=== PATIENT | female | born 1940 | race Caucasian/White ===

== ENCOUNTER 2016-07-09 12:38 | Inpatient (IN) | payer MEDICARE, MEDICAID ==
[~2016-07-09] VITALS: Ht 149.9 cm; Wt 48.3 kg
[2016-07-09 16:30] VITALS: BP 131/63
[2016-07-09] MEDS ORDERED: HEPARIN SODIUM,PORCINE 5,000 UNITS/ML VIAL IVP PRN ×2 (18:15)
[2016-07-09] MEDS ORDERED: HEPARIN SODIUM,PORCINE 5,000 UNITS/ML VIAL IVP ONE (18:15)
[2016-07-09 18:19] LABS: EOSINOPHILS % (AUTO) 2.7 % (1.0-6.0); HEMATOCRIT 28.8 % (36-46); HEMOGLOBIN 9.4 g/dL (12.0-16.0); LYMPHOCYTES # (AUTO) 0.7 K/uL (1.0-4.8); LYMPHOCYTES % (AUTO) 9.8 % (22.0-44.0); MEAN CORPUSCULAR HEMOGLOBIN 24.6 pg (26.0-34.0); MEAN CORPUSCULAR HGB CONC 32.5 G/dL (31.0-37.0); MEAN CORPUSCULAR VOLUME 76 fL (80-100); MONOCYTES # (AUTO) 0.4 K/uL (0.1-1.0); MONOCYTES % (AUTO) 5.4 % (2.0-9.0); NEUTROPHILS % (AUTO) 82.1 % (40.0-70.0); PLATELET COUNT (AUTO) 189 K/uL (150-450); RED CELL DISTRIBUTION WIDTH 23.3 % (11.5-14.5); WHITE BLOOD COUNT (AUTO) 7.3 K/uL (4.5-11.0)
[2016-07-09] MEDS ORDERED: DEXTROSE 50%-WATER 25 GM/50 ML SYRINGE IVP PRN (18:30)
[2016-07-09 18:51] LABS: ALBUMIN 2.7 g/dL (3.4-5.0); BILIRUBIN,TOTAL 0.3 mg/dL (0.1-1.0); CALCIUM, TOTAL 7.9 mg/dL (8.8-10.5); CREATINE KINASE MB 6.9 ng/mL (0-5); CREATININE 2.34 mg/dL (0.60-1.30); MAGNESIUM 1.5 mg/dL (1.80-2.40); PHOSPHORUS 4.4 mg/dL (2.5-4.9); TOTAL PROTEIN, SERUM 6.4 g/dL (6.4-8.2)
[2016-07-09] MEDS ORDERED: INFLUENZA VIRUS VACCINE QVS 2016-17 (3YR+)/PF 60 MCG/0.5 ML SYRINGE IM ONE (19:30)
[2016-07-09 19:33] VITALS: BP 115/54
[2016-07-09] MEDS: ATORVASTATIN CALCIUM 10 MG TABLET PO SCH (20:31)
[2016-07-09 21:08] LABS: INR 1.1 (0.9-1.1); PROTHROMBIN TIME 11.2 SEC (9.4-11.6)
[2016-07-09] MEDS: SODIUM CHLORIDE 0.9% 1,000 ML IV SCH (21:27)
[2016-07-09] MEDS: HEPARIN SODIUM 25000 UNITS/D5W 250 ML IV PRN (21:33)
[2016-07-09] MEDS: INSULIN ASPART 100 UNITS/ML SQ PRN (21:33)
[2016-07-09] MEDS ORDERED: PANTOPRAZOLE SODIUM 40 MG DR TABLET PO ONE (22:00)
[2016-07-09 22:46] LABS: GLUCOSE COMMENT 1 Received Meds; GLUCOSE,POINT OF CARE 143 MG/DL (70-110)
[2016-07-09 23:26] VITALS: BP 135/60
[2016-07-10] VITALS (17 sets, daily range): BP systolic 101–157; BP diastolic 53–91
[2016-07-10] MEDS: HEPARIN SODIUM 25000 UNITS/D5W 250 ML IV PRN (04:32)
[2016-07-10] MEDS ORDERED: CLOPIDOGREL BISULFATE 75 MG TABLET PO SCH (09:00)
[2016-07-10] MEDS ORDERED: ATORVASTATIN CALCIUM 10 MG TABLET PO SCH (09:00)
[2016-07-10] MEDS ORDERED: HEPARIN SODIUM 1000 UNITS/NS 1,000 ML ONE (10:59)
[2016-07-10] MEDS ORDERED: IOHEXOL 300 MG/ML 150 ML VIAL ONE (10:59)
[2016-07-10] MEDS ORDERED: LIDOCAINE HCL/PF 1% 30 ML VIAL ONE (10:59)
[2016-07-10] MEDS ORDERED: SODIUM BICARBONATE 50 MEQ/50 ML VIAL ONE (10:59)
[2016-07-10] MEDS ORDERED: FentaNYL CITRATE-PF 100 MCG/2 ML VIAL ONE (11:11)
[2016-07-10] MEDS ORDERED: MORPHINE SULFATE 2 MG/ML SYRINGE ONE (11:13)
[2016-07-10] MEDS ORDERED: DiphenhydrAMINE HCL 50 MG/ML VIAL ONE (11:13)
[2016-07-10] MEDS ORDERED: HEPARIN SODIUM 1000 UNITS/NS 1,000 ML IARTER ONE (11:15)
[2016-07-10] MEDS ORDERED: FentaNYL CITRATE-PF 100 MCG/2 ML VIAL IVP ONE (11:15)
[2016-07-10] MEDS ORDERED: SODIUM CHLORIDE 0.9% 500 ML IV ONE (11:15)
[2016-07-10] MEDS ORDERED: MORPHINE SULFATE 2 MG/ML SYRINGE IVP ONE (11:15)
[2016-07-10] MEDS ORDERED: DiphenhydrAMINE HCL 50 MG/ML VIAL IVP ONE (11:15)
[2016-07-10] MEDS ORDERED: LIDOCAINE 1% 30 ML/SOD BICARB 8.4% 4 ML SQ ONE (11:15)
[2016-07-10] MEDS ORDERED: HEPARIN SODIUM,PORCINE 5,000 UNITS/ML VIAL IVP ONE (11:15)
[2016-07-10] MEDS ORDERED: SODIUM CHLORIDE 0.45% 1,000 ML IV ONE (11:16)
[2016-07-10] MEDS ORDERED: IOHEXOL 300 MG/ML 150 ML VIAL IARTER ONE (11:45)
[2016-07-10] MEDS ORDERED: PNEUMOCOCCAL VACCINE POLYVALENT 0.5 ML VIAL [PPSV23] IM ONE (12:15)
[2016-07-10] MEDS: CARVEDILOL 3.125 MG TABLET PO SCH (13:00)
[2016-07-10] MEDS: PANTOPRAZOLE SODIUM 40 MG DR TABLET PO SCH (13:00)
[2016-07-10] MEDS: SODIUM CHLORIDE 0.9% 1,000 ML IV SCH (13:01)
[2016-07-10] MEDS: SODIUM CHLORIDE 0.45% 1,000 ML IV SCH ×3 (13:16→17:12)
[2016-07-10 14:24] LABS: BASOPHILS % (AUTO) 0.3 % (0.0-2.0); HEMATOCRIT 27.1 % (36-46); HEMOGLOBIN 8.8 g/dL (12.0-16.0); LYMPHOCYTES # (AUTO) 0.5 K/uL (1.0-4.8); LYMPHOCYTES % (AUTO) 12.8 % (22.0-44.0); MEAN CORPUSCULAR HEMOGLOBIN 24.6 pg (26.0-34.0); MEAN CORPUSCULAR HGB CONC 32.5 G/dL (31.0-37.0); MEAN CORPUSCULAR VOLUME 76 fL (80-100); MONOCYTES # (AUTO) 0.2 K/uL (0.1-1.0); MONOCYTES % (AUTO) 6.6 % (2.0-9.0); NEUTROPHILS # (AUTO) 2.8 K/uL (1.8-7.7); NEUTROPHILS % (AUTO) 75.3 % (40.0-70.0); PLATELET COUNT (AUTO) 185 K/uL (150-450); RED BLOOD CELL COUNT(AUTO) 3.58 MIL/uL (4.00-5.20); RED CELL DISTRIBUTION WIDTH 23.1 % (11.5-14.5); WHITE BLOOD COUNT (AUTO) 3.8 K/uL (4.5-11.0)
[2016-07-10 14:39] LABS: CALCIUM, TOTAL 7.7 mg/dL (8.8-10.5); CREATININE 2.06 mg/dL (0.60-1.30)
[2016-07-10 14:42] LABS: RBC MORPHOLOGY COMMENT ABNORMAL RBC MORPH
[2016-07-10] MEDS ORDERED: MAGNESIUM SULFATE 1 GM in DEXTROSE 5%-WATER 50 ML IV ONE (15:00)
[2016-07-10 18:02] LABS: APPEARANCE,URINE CLEAR (CLEAR); GLUCOSE, URINE (UA) NEGATIVE (NEGATIVE); KETONES,URINE NEGATIVE (NEGATIVE); LEUKOCYTE ESTERASE ,URINE SMALL (NEGATIVE); OCCULT BLOOD,URINE NEGATIVE (NEGATIVE); PROTEIN,URINE NEGATIVE (NEGATIVE)
[2016-07-10 18:15] LABS: ADD UA MICROSCOPIC YES; RBC,URINE 0-2 /HPF (0-2); SQUAMOUS EPITHELIAL CELL,UR Few /LPF (None Seen)
[2016-07-10] MEDS: INSULIN ASPART 100 UNITS/ML SQ PRN ×2 (18:18→20:26)
[2016-07-10] MEDS: ATORVASTATIN CALCIUM 10 MG TABLET PO SCH (20:24)
[2016-07-11] MEDS: SODIUM CHLORIDE 0.45% 1,000 ML IV SCH ×2 (03:45→11:45)
[2016-07-11 04:26] VITALS: BP 158/75
[2016-07-11 06:30] LABS: BASOPHILS # (AUTO) 0.01 K/uL (0.00-0.20); BASOPHILS % (AUTO) 0.3 % (0.0-2.0); EOSINOPHILS # (AUTO) 0.19 K/uL (0.00-0.70); EOSINOPHILS % (AUTO) 4.76 % (1.0-6.0); HEMATOCRIT 25.7 % (36-46); HEMOGLOBIN 8.4 g/dL (12.0-16.0); LYMPHOCYTES # (AUTO) 0.6 K/uL (1.0-4.8); LYMPHOCYTES % (AUTO) 15.5 % (22.0-44.0); MEAN CORPUSCULAR HEMOGLOBIN 24.7 pg (26.0-34.0); MEAN CORPUSCULAR HGB CONC 32.7 G/dL (31.0-37.0); MEAN CORPUSCULAR VOLUME 76 fL (80-100); MONOCYTES # (AUTO) 0.3 K/uL (0.1-1.0); MONOCYTES % (AUTO) 7.9 % (2.0-9.0); NEUTROPHILS # (AUTO) 2.9 K/uL (1.8-7.7); NEUTROPHILS % (AUTO) 71.6 % (40.0-70.0); PLATELET COUNT (AUTO) 187 K/uL (150-450); RED CELL DISTRIBUTION WIDTH 22.6 % (11.5-14.5); WHITE BLOOD COUNT (AUTO) 4.1 K/uL (4.5-11.0)
[2016-07-11 06:35] LABS: CALCIUM, TOTAL 8.1 mg/dL (8.8-10.5); CREATININE 1.63 mg/dL (0.60-1.30); POTASSIUM 4.1 mmol/L (3.5-5.1)
[2016-07-11 07:18] VITALS: BP 158/61
[2016-07-11 08:00] LABS: RBC MORPHOLOGY COMMENT ABNORMAL RBC MORPH
[2016-07-11] MEDS ORDERED: ERGOCALCIFEROL (VIT D2) 50,000 UNITS CAPSULE PO SCH (09:00)
[2016-07-11] MEDS: PANTOPRAZOLE SODIUM 40 MG DR TABLET PO SCH (09:11)
[2016-07-11] MEDS: CARVEDILOL 3.125 MG TABLET PO SCH (09:11)
[2016-07-11] MEDS ORDERED: ASPIRIN 81 MG CHEWABLE TABLET PO SCH (09:15)
[2016-07-11 11:41] VITALS: BP 145/64
[2016-07-11] MEDS: INSULIN ASPART 100 UNITS/ML SQ PRN (12:38)
[2016-07-12 06:57] LABS: GLUCOSE COMMENT 1 Received Meds; GLUCOSE,POINT OF CARE 119 MG/DL (70-110)
[2016-07-12 06:57] LABS: GLUCOSE COMMENT 1 Received Meds; GLUCOSE,POINT OF CARE 148 MG/DL (70-110)
[2016-07-12 06:57] LABS: GLUCOSE,POINT OF CARE 154 MG/DL (70-110)
[2016-07-12 06:57] LABS: GLUCOSE,POINT OF CARE 123 MG/DL (70-110)
[2016-07-13 20:01] LABS: GLUCOSE,POINT OF CARE 164 MG/DL (70-110)
[2016-07-13 20:01] LABS: GLUCOSE,POINT OF CARE 133 MG/DL (70-110)
== END 2016-07-11 13:45 | disposition short-term general hospital (02) | DRG 280 ==
LOC: 5N 16:00
PROVIDERS: ADMIT Hospitalist; ATTEND Hospitalist
PROC: 4A023N7 Measurement of Cardiac Sampling and Pressure, Left Heart, Percutaneous Approach (ICD-10-PCS; principal; 2016-07-10)
PROC: B2111ZZ Fluoroscopy of Multiple Coronary Arteries using Low Osmolar Contrast (ICD-10-PCS; 2016-07-10)
PROC: B2151ZZ Fluoroscopy of Left Heart using Low Osmolar Contrast (ICD-10-PCS; 2016-07-10)
PROC: 3E0234Z Introduction of Serum, Toxoid and Vaccine into Muscle, Percutaneous Approach (ICD-10-PCS; 2016-07-11)
PROC: 3E0234Z Introduction of Serum, Toxoid and Vaccine into Muscle, Percutaneous Approach (ICD-10-PCS; 2016-07-11)
DX: I21.4 Non-ST elevation (NSTEMI) myocardial infarction (principal); E43 Unspecified severe protein-calorie malnutrition; E87.2 Acidosis; I13.0 Hypertensive heart and chronic kidney disease with heart failure and stage 1 through stage 4 chronic kidney disease, or unspecified chronic kidney disease; N17.9 Acute kidney failure, unspecified; N18.4 Chronic kidney disease, stage 4 (severe); I69.354 Hemiplegia and hemiparesis following cerebral infarction affecting left non-dominant side; E78.5 Hyperlipidemia, unspecified; E11.22 Type 2 diabetes mellitus with diabetic chronic kidney disease; E11.319 Type 2 diabetes mellitus with unspecified diabetic retinopathy without macular edema; I25.10 Atherosclerotic heart disease of native coronary artery without angina pectoris; I25.5 Ischemic cardiomyopathy; I50.9 Heart failure, unspecified; N20.0 Calculus of kidney; D64.9 Anemia, unspecified; D75.9 Disease of blood and blood-forming organs, unspecified; E83.42 Hypomagnesemia; E11.51 Type 2 diabetes mellitus with diabetic peripheral angiopathy without gangrene; Z79.899 Other long term (current) drug therapy; Z79.02 Long term (current) use of antithrombotics/antiplatelets; Z90.49 Acquired absence of other specified parts of digestive tract; Z98.51 Tubal ligation status; Z80.0 Family history of malignant neoplasm of digestive organs; Z87.891 Personal history of nicotine dependence; Z23 Encounter for immunization; I25.2 Old myocardial infarction; Z87.11 Personal history of peptic ulcer disease
CPT/HCPCS: 82962; 83540; 83550; 83735; 84100; 85576; 87086; 90471; J1200; J1644; J2270; J3010; J3475; J3490; J7030; J7060; Q9967